=== PATIENT | female | born 1985 | race Caucasian/White ===

== ENCOUNTER 2017-09-11 20:21 | Outpatient (CLI) | payer MEDICAID ==
[2017-09-11] MEDS: ACETAMINOPHEN 325 MG TAB PO (22:09)
[2017-09-11 22:11] LABS: ADD UMIC YES; UR ASCORBIC ACID NEGATIVE (NEGATIVE); UR BACTERIA FEW /HPF (NONE SEEN); UR BILIRUBIN (Dip) NEGATIVE (NEGATIVE); UR BLOOD (Dip) NEGATIVE (NEGATIVE); UR CLARITY CLEAR (CLEAR); UR COLOR STRAW (YELLOW); UR GLUCOSE (Dip) NEGATIVE (NEGATIVE); UR KETONES (Dip) NEGATIVE (NEGATIVE); UR LEUKOCYTE ESTERASE (Dip) 1+ Leu/ul (NEGATIVE); UR NITRITE (Dip) NEGATIVE (NEGATIVE); UR RBC 1 /HPF (0-5); UR SPECIFIC GRAVITY (Dip) 1.004 (1.003-1.030); UR SQUAMOUS EPITHELIAL CELL FEW /HPF (FEW); UR TOTAL PROTEIN (Dip) NEGATIVE (NEGATIVE); UR UROBILINOGEN (Dip) NEGATIVE (NEGATIVE); UR WBC 1 /HPF (0-5)
[2017-09-11] MEDS ORDERED: TERBUTALINE 1 MG/ML INJ SC (22:30)
[2017-09-11] MEDS: TERBUTALINE 1 MG/ML INJ SC (22:42)
== END 2017-09-11 23:55 | disposition home or self-care (01) ==
LOC: OBT 20:21 → L-D 20:22
DX: O26.893 Other specified pregnancy related conditions, third trimester (principal); R51 Headache; Z3A.30 30 weeks gestation of pregnancy
CPT/HCPCS: 76818; 81001

== ENCOUNTER 2017-11-03 16:03 | Inpatient (IN) | payer MEDICAID ==
[2017-11-03] MEDS: LACTATED RINGER'S 1,000 ML IV (18:51)
[2017-11-03] MEDS ORDERED: LIDOCAINE 1% (MPF) 30 ML INJ INJ (19:00)
[2017-11-03] MEDS ORDERED: OXYTOCIN 30 UNITS/LR 500 ML IV ×2 (19:00)
[2017-11-03] MEDS ORDERED: CARBOPROST 250 MCG INJ IM (19:00)
[2017-11-03] MEDS ORDERED: MISOPROSTOL 200 MCG TAB PR (19:00)
[2017-11-03] MEDS ORDERED: BUTORPHANOL 2 MG INJ IV (19:00)
[2017-11-03] MEDS ORDERED: METHYLERGONOVINE 0.2 MG INJ IM (19:00)
[2017-11-03 19:24] LABS: ADD MAN DIFF? NO
[2017-11-03 19:30] LABS: WHITE BLOOD COUNT 9.4 10^3/ul (4.8-10.8)
[2017-11-03 19:30] LABS: BASOPHILS % 0.4 % (0.0-2.0); EOSINOPHILS % 0.4 % (0.0-7.0); HEMATOCRIT 36.2 % (37.0-47.0); HEMOGLOBIN 12.1 g/dl (12.0-16.0); LYMPHOCYTES # 2.2 10^3/ul (0.8-2.9); LYMPHOCYTES % 23.2 % (15.0-51.0); MEAN CORPUSCULAR HEMOGLOBIN 31.6 pg (29.0-33.0); MEAN CORPUSCULAR HGB CONC 33.4 g/dl (32.0-37.0); MEAN CORPUSCULAR VOLUME 94.5 fl (82.0-101.0); MEAN PLATELET VOLUME 10.1 fl (7.4-10.4); MONOCYTE # 0.9 10^3/ul (0.3-0.9); MONOCYTES % 9.6 % (0.0-11.0); NEUTROPHIL # 6.1 10^3/ul (1.6-7.5); NEUTROPHILS % 64.5 % (39.0-77.0); PLATELET COUNT 184 10^3/UL (140-415); RED BLOOD COUNT 3.83 10^6/ul (4.20-5.40); RED CELL DISTRIBUTION WIDTH 12.9 % (11.5-14.5)
[2017-11-03] MEDS ORDERED: LACTATED RINGER'S 1,000 ML IV (19:39)
[2017-11-03 19:52] LABS: INR 0.93; PROTIME 12.6 Sec (11.9-14.9)
[2017-11-03 19:53] LABS: PARTIAL THROMBOPLASTIN TIME 26.2 Sec (25.0-35.0)
[2017-11-03] MEDS ORDERED: MINERAL OIL LIGHT 10 ML VIAL TOP (20:00)
[2017-11-04] MEDS: LACTATED RINGER'S 1,000 ML IV ×3 (00:44→16:13)
[2017-11-04 15:29] LABS: RAPID PLASMA REAGIN NONREACTIVE (NR)
[2017-11-04] MEDS: OXYTOCIN 30 UNITS/LR 500 ML IV ×3 (16:31→21:59)
[2017-11-04] MEDS: OXYCODONE/ASPIRIN (4.88/325) TAB PO (18:21)
[2017-11-04] MEDS ORDERED: OXYTOCIN 30 UNITS/LR 500 ML IV (18:30)
[2017-11-04] MEDS ORDERED: METHYLERGONOVINE 0.2 MG INJ IM (18:30)
[2017-11-04] MEDS ORDERED: CARBOPROST 250 MCG INJ IM (18:30)
[2017-11-04] MEDS ORDERED: OXYCODONE/ASPIRIN (4.88/325) TAB PO (18:30)
[2017-11-04] MEDS ORDERED: NACL 0.9% 3 ML SYG IV (18:30)
[2017-11-04] MEDS ORDERED: DIBUCAINE 1% 30 GM OINT PR (18:30)
[2017-11-04] MEDS ORDERED: SENNA/DOCUSATE NA (8.6MG/50MG) TAB PO (18:30)
[2017-11-04] MEDS ORDERED: ACETAMINOPHEN 325 MG TAB PO (18:30)
[2017-11-04] MEDS ORDERED: MISOPROSTOL 200 MCG TAB PR (18:30)
[2017-11-04] MEDS ORDERED: ONDANSETRON 4 MG INJ IV (18:30)
[2017-11-04] MEDS: SENNA/DOCUSATE NA (8.6MG/50MG) TAB PO (21:31)
[2017-11-04] MEDS: LANOLIN 7 GM TUBE TOP (21:31)
[2017-11-04] MEDS: BENZOCAINE 20% 56 ML SPRAY TOP (21:31)
[2017-11-04] MEDS: WITCH HAZEL/GLYCERIN PAD PR (21:32)
[2017-11-04] MEDS: IBUPROFEN 600 MG TAB PO (23:28)
[2017-11-05] MEDS: IBUPROFEN 600 MG TAB PO ×4 (05:41→23:44)
[2017-11-05 09:11] LABS: ADD MAN DIFF? NO
[2017-11-05 09:17] LABS: WHITE BLOOD COUNT 10.4 10^3/ul (4.8-10.8)
[2017-11-05 09:17] LABS: BASOPHILS % 0.3 % (0.0-2.0); EOSINOPHILS # 0.1 10^3/ul (0.0-0.5); EOSINOPHILS % 0.6 % (0.0-7.0); HEMATOCRIT 28.5 % (37.0-47.0); HEMOGLOBIN 9.6 g/dl (12.0-16.0); LYMPHOCYTES # 2.1 10^3/ul (0.8-2.9); LYMPHOCYTES % 20.5 % (15.0-51.0); MEAN CORPUSCULAR HEMOGLOBIN 31.3 pg (29.0-33.0); MEAN CORPUSCULAR HGB CONC 33.7 g/dl (32.0-37.0); MEAN CORPUSCULAR VOLUME 92.8 fl (82.0-101.0); MEAN PLATELET VOLUME 10.4 fl (7.4-10.4); MONOCYTE # 1.2 10^3/ul (0.3-0.9); MONOCYTES % 11.5 % (0.0-11.0); NEUTROPHIL # 6.9 10^3/ul (1.6-7.5); NEUTROPHILS % 65.9 % (39.0-77.0); PLATELET COUNT 167 10^3/UL (140-415); RED BLOOD COUNT 3.07 10^6/ul (4.20-5.40); RED CELL DISTRIBUTION WIDTH 12.9 % (11.5-14.5)
[2017-11-05] MEDS: SENNA/DOCUSATE NA (8.6MG/50MG) TAB PO ×2 (11:19→21:19)
[2017-11-06] MEDS: IBUPROFEN 600 MG TAB PO ×2 (05:33→12:18)
[2017-11-06] MEDS: SENNA/DOCUSATE NA (8.6MG/50MG) TAB PO (09:08)
== END 2017-11-06 17:57 | disposition home or self-care (01) | DRG 775 ==
LOC: OBT 16:03 → L-D 16:04 → PP1 11-04 20:26 → L-D 16:08 → OBT 18:05 → L-D 18:05
PROVIDERS: Obstetrics & Gynecology
PROC: 10E0XZZ Delivery of Products of Conception, External Approach (ICD-10-PCS; principal; 2017-11-03)
PROC: 0KQM0ZZ Repair Perineum Muscle, Open Approach (ICD-10-PCS; 2017-11-03)
DX: O36.5930 Maternal care for other known or suspected poor fetal growth, third trimester, not applicable or unspecified (principal); O76 Abnormality in fetal heart rate and rhythm complicating labor and delivery; O62.9 Abnormality of forces of labor, unspecified; O70.1 Second degree perineal laceration during delivery; Z3A.38 38 weeks gestation of pregnancy; Z37.0 Single live birth
CPT/HCPCS: 76815; 76818; 85025; 85610; 85730; 86592; 86850; 86900; 86901; 99464